=== PATIENT | male | born 1975 | race African-American/Black ===

== ENCOUNTER 2020-05-10 12:52 | Emergency (ER) | payer MEDICARE, MEDICAID ==
[~2020-05-10] VITALS: Ht 175.3 cm; Wt 84.4 kg
[~2020-05-10 12:52] MED LIST: COUMADIN10 MG ORAL; COUMADIN7.5 MG ORAL; DILAUDID8 MG PO; FOLIC ACID1 MG PO; HYDROXYUREA500 MG PO; OXYCODONE HCL30 MG PO
--- NOTE | 2020-05-10 13:11 | NUR ---
ED Nurse Note: Pt ambulated to ed c/o sickle cell exacerbation, pain prominently on chest x1 month. denies nausea/vomiting. pt reports taking oxycodone at home to alleviate pain.
[2020-05-10 13:12] VITALS: BP 147/92
[2020-05-10] MEDS ORDERED: HYDROmorphone 1 MG in NS 55 ML IV ONE (13:15)
[2020-05-10 13:43] LABS: APPEARANCE,URINE SLIGHTLY CLOUDY; BILIRUBIN, URINE NEGATIVE (NEGATIVE); GLUCOSE, URINE (UA) NEGATIVE (NEGATIVE); KETONES,URINE NEGATIVE (NEGATIVE); LEUKOCYTE ESTERASE ,URINE 3+ (NEGATIVE); NITRITE,URINE POSITIVE (NEGATIVE); PH,URINE 6 (4.5-8.0); PROTEIN,URINE 2+ (NEGATIVE); UROBILINOGEN,URINE 8 MG/DL (0.0-1.0)
--- NOTE | 2020-05-10 13:49 | Emergency Room Report ---
History of Present Illness General Chief Complaint: General Complaint Present Illness HPI 44-year-old male with history of sickle cell currently on hydroxyurea and daily dose of oxycodone here complaining of worsening pain x1 week. Patient reports that he has been experiencing some chest pain without radiation and describes it as stabbing. Denies tingling or numbness. Denies headache and dizziness. Reports that for the past 2 weeks he has been going to his primary care provider's office and receiving IV Dilaudid in office on daily basis however could not go today as they're close over the weekend. Patient also took 60 mg of oxycodone prior to arrival and reported that the pain did not get any better. Denies any bleeding at this time. Denies shortness of breath, cough or congestion, no other associate symptoms. Patient does not recall the latest reticulocyte count. Denies tobacco smoking alcohol intake reports that he smokes marijuana daily basis. Allergies: Coded Allergies: MORPHINE (Verified Adverse Reaction, Unknown, Rash, 09/25/13) COVID-19 Screening Contact w/high risk pt: No Experienced COVID-19 symptoms?: No COVID-19 Testing performed [employer]: No Patient History Past Medical History: see triage record Past Surgical History: none Pertinent Family History: none Social History: Reports: drug use - marijuana Immunizations: UTD Reviewed Nursing Documentation: PMH: Agreed; PSxH: Agreed Nursing Documentation-PMH Hx Cardiac Problems: No - SICKLE CELL Hx Asthma: Yes Hx Cancer: No Hx Gastrointestinal Problems: No Hx Neurological Problems: No Review of Systems All Other Systems: negative except mentioned in HPI Physical Exam Vital Signs Date Time Temp Pulse Resp B/P (MAP) Pulse Ox O2 Delivery O2 Flow Rate FiO2 05/10/20 13:05 97.3 98 20 147/92 (110) 96 Room Air Sp02 EP Interpretation: reviewed, normal General Appearance: no apparent distress, alert, GCS 15, non-toxic Head: normocephalic, atraumatic Eyes: bilateral eye normal inspection, bilateral eye PERRL ENT: hearing grossly normal, normal pharynx, no angioedema, normal voice Neck: full range of motion, supple/symm/no masses Respiratory: chest non-tender, lungs clear, normal breath sounds, speaking full sentences Cardiovascular #1: regular rate, rhythm, no edema Cardiovascular #2: 2+ carotid (R), 2+ carotid (L), 2+ radial (R), 2+ radial (L) , 2+ dorsalis pedis (R), 2+ dorsalis pedis (L) Gastrointestinal: normal bowel sounds, non tender, soft, non-distended, no guarding, no rebound Rectal: deferred Genitourinary: no CVA tenderness Musculoskeletal: back normal, no calf tenderness Neurologic: alert, motor strength/tone normal, oriented x3, sensory intact, responsive, speech normal Psychiatric: judgement/insight normal, memory normal, mood/affect normal, no suicidal/homicidal ideation Skin: no rash Lymphatic: no adenopathy Medical Decision Making PA Attestation All my diagnosis and treatment plans were reviewed ad discussed with my supervising physician Dr. Gao Diagnostic Impression: Primary Impression: Sickle cell crisis ER Course 44-year-old male with history of sickle cell currently on hydroxyurea and daily dose of oxycodone here complaining of worsening pain x1 week. Patient reports that he has been experiencing some chest pain without radiation and describes it as stabbing. Denies tingling or numbness. Denies headache and dizziness. Reports that for the past 2 weeks he has been going to his primary care provider's office and receiving IV Dilaudid in office on daily basis however could not go today as they're close over the weekend. Patient also took 60 mg of oxycodone prior to arrival and reported that the pain did not get any better. Denies any bleeding at this time. Denies shortness of breath, cough or congestion, no other associate symptoms. Patient does not recall the latest reticulocyte count. Denies tobacco smoking alcohol intake reports that he smokes marijuana daily basis. Ddx considered but are not limited to: NE, Angina, sickle cell crisis, sickle cell anemia Vital signs: are WNL, pt. is afebrile H&PE are most consistent with sickle cell crisis, UTI ORDERS: EKG, Chest XR, troponin, CBC, CMP, reticulocyte count, UA, tox screen, PT and PTT, keflex ED INTERVENTIONS: Dilaudid, NS bolus DISCHARGE: At this time pt. is stable for d/c to home. Will provide printed patient care instructions, and any necessary prescriptions. Care plan and follow up instructions have been discussed with the patient prior to discharge. Take medication as directed, follow-up with your primary care provider, patient is following a primary care provider tomorrow, worsening symptoms return to emergency room. Also needed. Pain management to be requested by your filter plant operator Dr. Valdez. In the emergency room setting pain management is limited. EKG Diagnostic Results Rate: normal Rhythm: NSR ST Segments: no acute changes Other Impression No acute ST changes ASA given to the pt in ED: No Chest X-Ray Diagnostic Results Chest X-Ray Diagnostic Results : Chest X-Ray Ordered: Yes # of Views/Limited/Complete: 1 View Indication: Chest Pain EP Interpretation: Yes PA Xray: Interpretation reviewed, by supervising MD, and agrees with findings. Last Vital Signs Date Time Temp Pulse Resp B/P (MAP) Pulse Ox O2 Delivery O2 Flow Rate FiO2 05/10/20 13:12 97.3 98 20 147/92 96 Room Air Disposition: HOME, SELF-CARE Condition: Stable Referrals: NOT CHOSEN IPA/MD,REFERRING (PCP) Patient Instructions: Sickle Cell Anemia, Adult, [id number] Additional Instructions: At this time pt. is stable for d/c to home. Will provide printed patient care instructions, and any necessary prescriptions. Care plan and follow up instructions have been discussed with the patient prior to discharge. Take medication as directed, follow-up with your primary care provider, patient is following a primary care provider tomorrow, worsening symptoms return to emergency room. Also needed. Pain management to be requested by your filter plant operator Dr. Valdez. In the emergency room setting pain management is limited. Jeferson Lemus May 10, 2020 13:49
[2020-05-10 13:50] LABS: COLOR,URINE YELLOW
--- NOTE | 2020-05-10 13:54 | NUR ---
ED Nurse Note: LAC iv site infiltrated, attempting to insert new IV line.
--- NOTE | 2020-05-10 14:00 | NUR ---
ED Nurse Note: IV site establisehd L AC 20G, patent and intact.
[2020-05-10 14:04] LABS: HEMATOCRIT 28.7 % (42.0-52.0); HEMOGLOBIN 9.9 G/DL (14.2-18.0); MEAN CORPUSCULAR VOLUME 92 FL (80-99); PLATELET COUNT 221 K/UL (150-450); RED CELL DISTRIBUTION WIDTH 20.8 % (11.6-14.8); WHITE BLOOD COUNT 17.6 K/UL (4.8-10.8)
[2020-05-10 14:14] LABS: ANION GAP 10 mmol/L (5-15); BLOOD UREA NITROGEN 14 mg/dL (7-18); CALCIUM 9.2 MG/DL (8.5-10.1); CARBON DIOXIDE 26 MMOL/L (21-32); CHLORIDE 103 MMOL/L (98-107); CREATININE 0.8 MG/DL (0.55-1.30); POTASSIUM 3.6 MMOL/L (3.5-5.1); SODIUM 139 MMOL/L (136-145)
[2020-05-10] MEDS ORDERED: cefTRIAXone 1 GM in NS 55 ML IVPB ONE (14:15)
[2020-05-10 14:25] LABS: ALANINE AMINOTRANSFERASE 38 U/L (12-78); ALBUMIN 4.1 G/DL (3.4-5.0); ALBUMIN/GLOBULIN RATIO 1.1 (1.0-2.7); ALKALINE PHOSPHATASE 101 U/L (46-116); ASPARTATE AMINO TRANSFERASE 49 U/L (15-37); BILIRUBIN,TOTAL 3.3 MG/DL (0.2-1.0)
[2020-05-10 14:26] LABS: BILIRUBIN,DIRECT 0.5 MG/DL (0.0-0.3)
--- NOTE | 2020-05-10 14:39 | Diagnostic Imaging Report ---
EXAM: XR Chest, 1 View CLINICAL HISTORY: PAIN TECHNIQUE: Frontal view of the chest. COMPARISON: No relevant prior studies available. FINDINGS: Lungs: Pulmonary vascular congestion. Subsegmental basilar atelectasis. . Pleural space: Unremarkable. No pneumothorax. Heart: Upper limits of normal for size. Mediastinum: Unremarkable. Bones/joints: Right shoulder prosthesis. IMPRESSION: Heart is at the upper limits of normal for size. There is pulmonary vascular congestion and basilar atelectasis.
[2020-05-10] MEDS ORDERED: CEPHALEXIN500 MG ORAL (15:00)
[2020-05-10 15:27] VITALS: BP 133/88
--- NOTE | 2020-05-10 15:28 | NUR ---
ER DISCHARGE NOTE: Patient is cleared to be discharged per ERMD, pt is aox4, on room air, with stable vital signs. pt was given dc and prescription instructions, pt was able to verbalize understanding, pt id band and iv site removed without complications. pt is able to ambulate with steady gait. pt took all belongings.
== END 2020-05-10 15:27 | disposition home or self-care (01) ==
LOC: EMR 13:20
DX: D57.00 Hb-SS disease with crisis, unspecified (principal); Z88.6 Allergy status to analgesic agent
CPT/HCPCS: 36415; 71045; 80053; 80307; 81003; 82248; 84484; 85007; 85025; 85044; 85610; 85730; 87086; 93005; 96365; 96375; 99284; J0696; J1170